=== PATIENT | male | born 1990 | race African-American/Black ===

== ENCOUNTER 2017-07-10 15:34 | Emergency (ER) | payer OTHER ==
[~2017-07-10] VITALS: Ht 188 cm; Wt 93.9 kg
[2017-07-10] MEDS ORDERED: KEFLEX500 MG PO (17:49)
[2017-07-10 18:02] VITALS: BP 154/76
== END 2017-07-10 18:30 | disposition home or self-care (01) ==
LOC: ER 15:34
DX: S61.301A Unspecified open wound of left index finger with damage to nail, initial encounter (principal); W27.8XXA Contact with other nonpowered hand tool, initial encounter; Y93.89 Activity, other specified; Y92.89 Other specified places as the place of occurrence of the external cause; Y99.0 Civilian activity done for income or pay